=== PATIENT | female | born 1995 | race Caucasian/White ===

== ENCOUNTER 2017-02-13 12:01 | Emergency (ER) | payer BC ==
[~2017-02-13 12:01] MED LIST: ALEVE220 M1 PO; ALLEGRA-D1 TAB.SR PO; AMOXICILLIN875 MG PO; AMOXIL PO; AUGMENTIN 875-1 EAC2 PO; AUGMENTIN PO; BCP; TYLENOL500 MG PO
[2017-02-13] MEDS ORDERED: [UNRECOGNIZED DRUG - OTHER] PO (12:14)
[2017-02-13] MEDS ORDERED: ZENCHENT 0.4 M1 EACH PO (12:15)
== END 2017-02-13 14:24 ==
LOC: EDMED 12:01
PROC: 2W3RXYZ Immobilization of Left Lower Leg using Other Device (ICD-10-PCS; principal; 2017-02-13)
DX: M25.562 Pain in left knee (principal)